=== PATIENT | male | born 1950 | race Caucasian/White ===

== ENCOUNTER 2018-10-25 20:51 | Emergency (ER) | payer MEDICARE ==
[2018-10-25] MEDS ORDERED: ONDANSETRON HCL 4 MG/2 ML VIAL ONE (21:21)
[2018-10-25] MEDS ORDERED: LORAZEPAM 2 MG/ML 1 ML VIAL ONE (21:21)
[2018-10-25] MEDS ORDERED: MORPHINE SULFATE 4 MG/1ML SYG ONE ×2 (21:22→21:50)
== END 2018-10-25 22:40 | disposition home or self-care (01) ==
LOC: EDH 20:51
DX: S43.004A Unspecified dislocation of right shoulder joint, initial encounter (principal); X50.0XXA Overexertion from strenuous movement or load, initial encounter; X50.9XXA Other and unspecified overexertion or strenuous movements or postures, initial encounter; Y93.89 Activity, other specified; Y92.098 Other place in other non-institutional residence as the place of occurrence of the external cause; Y99.8 Other external cause status
CPT/HCPCS: 23650; 73030 ×2; 96374; 96375; 99284; J2060; J2270 ×2; J2405; 96376

== ENCOUNTER 2019-02-20 17:23 | Inpatient (IN) | payer MEDICARE | END 2019-02-24 11:30 | disposition home or self-care (01) | LOC: EDH 17:23 → EDHIP 20:17 → 2AH 21:30 | PROC: 5A2204Z Restoration of Cardiac Rhythm, Single (ICD-10-PCS; principal; ~2019-02-20) | PROC: B246ZZ4 Ultrasonography of Right and Left Heart, Transesophageal (ICD-10-PCS; ~2019-02-20) | DX: I48.91 Unspecified atrial fibrillation (principal); J18.9 Pneumonia, unspecified organism; J84.9 Interstitial pulmonary disease, unspecified; R00.2 Palpitations; J40 Bronchitis, not specified as acute or chronic ==

== ENCOUNTER → 2024-12-20 | Outpatient (CLI) | payer MEDICARE ==
[~2024-12-20] MED LIST: APIX5TAB PO; ASPI-1005 PO; DILT120C89 PO; PROP150T28 PO; REGADENOSON 0.4 MG/5 ML PF SYG IVP ONE
--- NOTE | 2024-12-20 20:19 | HMCSR ---
APPROVED REPORT Height: 5 ft 9in Weight: 150 lbs TEST INDICATIONS CAD The imaging protocol used to acquire images was Rest Tc-99m/stress Tc-99m 1 day Consent: The procedure was explained and understood by the patient. Informerd consent was witnessed Yariel Quinones RN First, low dose rest was performed then high dose stress. RESTING DATA: The resting ekg shows: NSR Rest SPECT myocardial perfusion imaging was performed in supine position minutes following the intra venous injection of 10 mCi of Tc-99 Sestamibi. Time of rest injection: 09:35: Date: 12/20/2024 PHARMACOLOGIC STRESS: Pharmacologic stress test was performed by injecting regadenoson 0.4 mg IV push followed by the intra venous injection of 29 mCi of Tc-99 Sestamibi. Time of stress injection: 12:05: Date: 12/20/2024 Heart Rate at time of stress injection: 45 bpm. The images were gated to evaluate regional wall motion and calculate left ventricular ejection fracti on. STRESS DETAILS Reason for Termination: Infusion complete Stress Symptoms: Dyspnea Max HR Achieved: 63 bpm % of APMHR Achieved: 50 Max Blood Pressure: 106/62 mmHg Stress ECG: NSR Arrhythmia: No. ST Change: No. Study quality was good. Lung uptake was Normal. Artifact: No artifact LEFT VENTRICLE Size: The left ventricular size is normal. Systolic Function:The left ventricular systolic function is normal. Wall Motion: No regional wall motion abnormalities noted. The left ventricular ejection fraction was calculated to be 77%.TID = 1.17. LV PERFUSION Small size mild severity perfusion defect of the septal segment however partial improvement in stress images. RV Size/Shape Not visualized. IMPRESSION Equivocally normal pharmacologic nuclear stress test. Global LV Function: Normal Stress ECG Summary: Normal LV Perfusion Summary: Equivocal Conclusion Small size, mild severity perfusion defect of the septal segment however partial improvement in stres s imaging. Phramacologic cardiac stress test negative for ischemia or infarction. Stress LVEF 77%. No TID. Overall, results indicate low risk for cardiac events.
== END | disposition home or self-care (01) ==
LOC: RAH 08:53
PROVIDERS: ATTEND Internal Medicine Cardiovascular Disease
DX: I25.10 Atherosclerotic heart disease of native coronary artery without angina pectoris (principal); R06.00 Dyspnea, unspecified
CPT/HCPCS: 78452; 93017; J2785; A9500 ×2